=== PATIENT | male | born 1955 | race Caucasian/White ===

== ENCOUNTER 2023-11-08 20:23 | Inpatient (IN) ==
--- NOTE | 2023-11-08 20:48 | Emergency Department Note ---
Impression & Plan Colitis ADMIT ED Provider Note HPI: History obtained from patient. The patient is a 68-year-old gentleman who presents emergency department with a chief complaint of lower abdominal pain as well as intermittent fevers for about the past 10 days that occur after he eats. Patient states that he has gotten to the point where he is having difficulty eating and therefore came to the ED today to be assessed. Patient denies any vomiting, on arrival here to the ED the patient is hypertensive at 138/58 and mildly tachycardic at 113 but otherwise appears to be in no acute distress. Patient is saturating well on room air on my initial assessment. Per bedside RN patient had a near syncopal event in triage, patient tells me that this felt "like I was going to fall asleep because I feel very tired". Patient states he has not been sleeping very well over the past several nights secondary to his symptoms. Patient denies any chest pain or shortness of breath. ROS: - Per HPI Differential Diagnosis: Acute colitis, diverticulitis flare, small bowel obstruction, perforated viscus, ischemic colitis, amongst other potential pathologies. *Outpatient medications and allergy history reviewed. PE: General: Alert HEENT: Normocephalic, trachea midline Eyes: Extraocular eye movement is intact, no scleral erythema Pulmonary: Clear to auscultation bilaterally, no wheezing Cardio: Regular rate and rhythm GI: Abdomen is soft to palpation, there is moderate tenderness in the lower abdomen to palpation without guarding or rigidity : No suprapubic tenderness MSK: No evidence of trauma or malformation of the extremities, no edema Skin: No evidence of rash Neuro: Alert, no focal deficits Psychiatric: Cooperative INDEPENDENT INTERPRETATIONS: panel monitor: (As interpreted by myself): - An order was placed for continuous cardiac monitoring - Patient was noted to be in sinus rhythm with a rate of 95 EKG: (As interpreted by myself): Rate: 93 Rhythm: Normal sinus rhythm Intervals: Within normal limits ST changes: No ST elevation Time: 2104 Chest x-ray: (As interpreted by myself): -No acute disease Interventions provided in ED: -IV morphine, IV Zofran, IV Zosyn, IV fluid bolus Medical Decision Making: IV was established and lab work obtained, patient was placed on color television console monitor. Lab work shows a leukocytosis of 15.33, hemoglobin is normal, platelet count is normal, CMP does not show any critical findings, no evidence of acute kidney injury, troponin is negative x 1. There is no significant transaminitis, bilirubin is slightly elevated at 1.1. Procalcitonin is elevated at 0.52. Given leukocytosis, blood cultures were drawn in the ED. Patient was hypotensive in the 70s systolic when placed on monitor in the ED room, he was given IV fluid bolus of 1.5 L of normal saline and blood pressure did improve to 98/73 on my reassessment prior to admission. Patient states that he feels much better following IV fluid bolus as well as morphine and Zofran. EKG per my interpretation shows normal sinus rhythm without any acute ischemic changes, troponin is negative x 1. Low suspicion for ACS. Given the patient's leukocytosis, abdominal pain, and transient hypotension in addition to presyncopal event in the waiting room, I do feel that he would benefit from admission. Patient is in agreement to this plan. [facility] hospitalist service was consulted for admission, case was discussed with the on-call resident physician, Sabine Gallegos, and the patient was placed for admission in stable condition. Consultants/Discussions held with other healthcare providers: -Hospitalist, Dr. Chung Disposition discussion held by myself with: -Patient Diagnosis: 1. Acute colitis 2. Leukocytosis 3. Presyncopal event 4. Abdominal pain, acute 5. Elevated procalcitonin Disposition: Admission Pineda Turner DO Emergency Medicine Past Med/Surg History Social History Smoking Status: Former smoker Preferred Language: Belarusian Feels Safe at Home: Yes Allergies Allergies Allergy/AdvReac Type Severity Reaction Status Date / Time No Known Allergies Allergy Unverified 11/08/23 22:27 Home Meds Home Medications Medication Instructions Recorded Confirmed budesonide 3 mg 9 mg PO QAM 11/08/23 11/08/23 capsule,delayed,extended release lisinopril 20 mg tablet 20 mg PO QAM 11/08/23 11/08/23 mesalamine 1.2 gram tablet,delayed 2.4 g PO QAM 11/08/23 11/08/23 release Results & Data (ED) Vital Signs Vital Signs - 24 hr 11/08/23 20:27 11/08/23 20:44 11/08/23 20:44 Temperature 36.9 C Temperature Source Temporal Artery Scan Pulse Rate 113 H 102 H 104 H Pulse Rate [Apical] Pulse Rate from SpO2 Sensor Pulse Rhythm Regular Pulse Rhythm [Apical] Pulse Strength Normal Pulse Strength [Apical] Respiratory Rate 18 20 Respiratory Effort / Characteristics Non-Labored Spontaneous Respiratory Depth Normal Respiratory Pattern Regular Blood Pressure 138/58 L Blood Pressure [Right Arm] Blood Pressure Mean 84 Blood Pressure Mean [Right Arm] Blood Pressure Position Sitting Blood Pressure Position [Right Arm] Pulse Oximetry 95 Oxygen Delivery Method Room Air Oxygen Flow Rate Sepsis Recent Fever Within 48 Hours Yes Sepsis New/Unexplained Change in Mental Status N/A Sepsis Action Taken by Nursing No Action Required 11/08/23 20:50 11/08/23 20:52 11/08/23 20:52 Temperature Temperature Source Pulse Rate 100 H 100 H Pulse Rate [Apical] Pulse Rate from SpO2 Sensor 101 H 99 H Pulse Rhythm Pulse Rhythm [Apical] Pulse Strength Pulse Strength [Apical] Respiratory Rate 19 20 Respiratory Effort / Characteristics Respiratory Depth Respiratory Pattern Blood Pressure 71/53 L Blood Pressure [Right Arm] Blood Pressure Mean 65 Blood Pressure Mean [Right Arm] Blood Pressure Position Blood Pressure Position [Right Arm] Pulse Oximetry 94 93 Oxygen Delivery Method Room Air Room Air Oxygen Flow Rate Sepsis Recent Fever Within 48 Hours Sepsis New/Unexplained Change in Mental Status Sepsis Action Taken by Nursing 11/08/23 20:53 11/08/23 20:54 11/08/23 20:54 Temperature Temperature Source Pulse Rate 102 H Pulse Rate [Apical] 103 H Pulse Rate from SpO2 Sensor 102 H Pulse Rhythm Pulse Rhythm [Apical] Regular Pulse Strength Pulse Strength [Apical] Normal Respiratory Rate 17 23 Respiratory Effort / Characteristics Non-Labored Spontaneous Respiratory Depth Normal Respiratory Pattern Regular Blood Pressure 77/53 L Blood Pressure [Right Arm] 71/53 L Blood Pressure Mean 61 Blood Pressure Mean [Right Arm] 59 Blood Pressure Position Blood Pressure Position [Right Arm] Lying Pulse Oximetry 93 93 Oxygen Delivery Method Room Air Oxygen Flow Rate Sepsis Recent Fever Within 48 Hours Sepsis New/Unexplained Change in Mental Status Sepsis Action Taken by Nursing 11/08/23 21:00 11/08/23 21:00 11/08/23 21:15 Temperature Temperature Source Pulse Rate 98 H 102 H Pulse Rate [Apical] Pulse Rate from SpO2 Sensor 98 H Pulse Rhythm Regular Pulse Rhythm [Apical] Pulse Strength Pulse Strength [Apical] Respiratory Rate 15 17 Respiratory Effort / Characteristics Respiratory Depth Respiratory Pattern Blood Pressure 73/59 L Blood Pressure [Right Arm] Blood Pressure Mean 64 Blood Pressure Mean [Right Arm] Blood Pressure Position Blood Pressure Position [Right Arm] Pulse Oximetry 95 94 Oxygen Delivery Method Room Air Room Air Oxygen Flow Rate Sepsis Recent Fever Within 48 Hours Sepsis New/Unexplained Change in Mental Status Sepsis Action Taken by Nursing 11/08/23 21:29 11/08/23 21:30 11/08/23 21:30 Temperature Temperature Source Pulse Rate 94 H 93 H Pulse Rate [Apical] Pulse Rate from SpO2 Sensor 111 H 93 H Pulse Rhythm Pulse Rhythm [Apical] Pulse Strength Pulse Strength [Apical] Respiratory Rate 17 Respiratory Effort / Characteristics Respiratory Depth Respiratory Pattern Blood Pressure 92/61 L Blood Pressure [Right Arm] Blood Pressure Mean 69 Blood Pressure Mean [Right Arm] Blood Pressure Position Blood Pressure Position [Right Arm] Pulse Oximetry 95 94 Oxygen Delivery Method Room Air Room Air Oxygen Flow Rate Sepsis Recent Fever Within 48 Hours Sepsis New/Unexplained Change in Mental Status Sepsis Action Taken by Nursing 11/08/23 21:40 11/08/23 21:45 11/08/23 21:45 Temperature Temperature Source Pulse Rate 92 H 91 H Pulse Rate [Apical] Pulse Rate from SpO2 Sensor 92 H 91 H Pulse Rhythm Pulse Rhythm [Apical] Pulse Strength Pulse Strength [Apical] Respiratory Rate 19 16 Respiratory Effort / Characteristics Respiratory Depth Respiratory Pattern Blood Pressure 91/61 L Blood Pressure [Right Arm] Blood Pressure Mean 73 Blood Pressure Mean [Right Arm] Blood Pressure Position Blood Pressure Position [Right Arm] Pulse Oximetry 98 98 Oxygen Delivery Method Room Air Oxygen Flow Rate Sepsis Recent Fever Within 48 Hours Sepsis New/Unexplained Change in Mental Status Sepsis Action Taken by Nursing 11/08/23 21:50 11/08/23 22:00 11/08/23 22:00 Temperature Temperature Source Pulse Rate 89 90 Pulse Rate [Apical] Pulse Rate from SpO2 Sensor 89 Pulse Rhythm Pulse Rhythm [Apical] Pulse Strength Pulse Strength [Apical] Respiratory Rate 24 14 Respiratory Effort / Characteristics Respiratory Depth Respiratory Pattern Blood Pressure 99/62 L Blood Pressure [Right Arm] Blood Pressure Mean 74 Blood Pressure Mean [Right Arm] Blood Pressure Position Blood Pressure Position [Right Arm] Pulse Oximetry 96 Oxygen Delivery Method Oxygen Flow Rate Sepsis Recent Fever Within 48 Hours Sepsis New/Unexplained Change in Mental Status Sepsis Action Taken by Nursing 11/08/23 22:10 11/08/23 22:19 11/08/23 22:19 Temperature Temperature Source Pulse Rate 87 93 H Pulse Rate [Apical] Pulse Rate from SpO2 Sensor 88 94 H Pulse Rhythm Pulse Rhythm [Apical] Pulse Strength Pulse Strength [Apical] Respiratory Rate 20 19 Respiratory Effort / Characteristics Respiratory Depth Respiratory Pattern Blood Pressure 98/67 L Blood Pressure [Right Arm] Blood Pressure Mean 70 Blood Pressure Mean [Right Arm] Blood Pressure Position Blood Pressure Position [Right Arm] Pulse Oximetry 93 Oxygen Delivery Method Oxygen Flow Rate Sepsis Recent Fever Within 48 Hours Sepsis New/Unexplained Change in Mental Status Sepsis Action Taken by Nursing 11/08/23 22:20 11/08/23 22:30 11/08/23 22:30 Temperature Temperature Source Pulse Rate 92 H 86 Pulse Rate [Apical] Pulse Rate from SpO2 Sensor 92 H 86 Pulse Rhythm Pulse Rhythm [Apical] Pulse Strength Pulse Strength [Apical] Respiratory Rate 20 21 Respiratory Effort / Characteristics Respiratory Depth Respiratory Pattern Blood Pressure 89/70 L Blood Pressure [Right Arm] Blood Pressure Mean 78 Blood Pressure Mean [Right Arm] Blood Pressure Position Blood Pressure Position [Right Arm] Pulse Oximetry 94 Oxygen Delivery Method Oxygen Flow Rate Sepsis Recent Fever Within 48 Hours Sepsis New/Unexplained Change in Mental Status Sepsis Action Taken by Nursing 11/08/23 22:40 11/08/23 22:45 11/08/23 22:45 Temperature Temperature Source Pulse Rate 82 82 Pulse Rate [Apical] Pulse Rate from SpO2 Sensor 82 82 Pulse Rhythm Pulse Rhythm [Apical] Pulse Strength Pulse Strength [Apical] Respiratory Rate 19 20 Respiratory Effort / Characteristics Respiratory Depth Respiratory Pattern Blood Pressure 98/73 L Blood Pressure [Right Arm] Blood Pressure Mean 76 Blood Pressure Mean [Right Arm] Blood Pressure Position Blood Pressure Position [Right Arm] Pulse Oximetry 92 93 Oxygen Delivery Method Nasal Cannula Nasal Cannula Oxygen Flow Rate 2 2 Sepsis Recent Fever Within 48 Hours Sepsis New/Unexplained Change in Mental Status Sepsis Action Taken by Nursing 11/08/23 22:50 11/08/23 22:55 Temperature Temperature Source Pulse Rate 82 Pulse Rate [Apical] 84 Pulse Rate from SpO2 Sensor 82 Pulse Rhythm Pulse Rhythm [Apical] Regular Pulse Strength Pulse Strength [Apical] Normal Respiratory Rate 22 18 Respiratory Effort / Characteristics Non-Labored Spontaneous Respiratory Depth Normal Respiratory Pattern Regular Blood Pressure Blood Pressure [Right Arm] 98/73 L Blood Pressure Mean Blood Pressure Mean [Right Arm] 81 Blood Pressure Position Blood Pressure Position [Right Arm] Lying Pulse Oximetry 95 94 Oxygen Delivery Method Nasal Cannula Nasal Cannula Oxygen Flow Rate 2 2 Sepsis Recent Fever Within 48 Hours Sepsis New/Unexplained Change in Mental Status Sepsis Action Taken by Nursing Laboratory Data 11/08/23 20:45 11/08/23 20:45 Lab Results 11/08/23 11/08/23 11/08/23 Range/Units 20:45 20:59 22:32 WBC 15.33 H (4.8-10.8) K/ul RBC 5.19 (4.70-6.10) M/uL Hgb 14.0 (14.0-18.0) g/dl POC Hgb 15.0 (14.0-18.0) g/dl Hct 42.3 (42.0-52.0) % POC Hct 44 (42-52) % MCV 81.5 (80.0-100.0) fL MCH 27.0 (25.0-34.0) pg MCHC 33.1 (32.0-36.0) g/dL RDW Std Deviation 39.3 (36.4-46.3) fL RDW Coeff of Briana 13.2 (11.5-14.5) % Plt Count 335 (130-400) K/uL MPV 12.1 (9.4-12.4) fL Immature Gran % (Auto) 0.6 % Neut % (Auto) 84.8 % Lymph % (Auto) 7.1 % [place] % (Auto) 6.4 % Eos % (Auto) 0.5 % Baso % (Auto) 0.6 % Neut # (Auto) 13.01 H (1.40-6.50) K/uL Lymph # (Auto) 1.09 L (1.20-3.40) K/uL [place] # (Auto) 0.98 H (0.11-0.59) K/uL Eos # (Auto) 0.07 (0.00-0.50) K/uL Baso # (Auto) 0.09 (0.00-0.20) K/uL Immature Gran # (Auto) 0.09 (0.01-0.20) K/uL Dohle Bodies 2+ Rouleaux 3+ PT 13.0 H (9.0-12.0) Seconds INR 1.2 H (0.9-1.1) POC Sodium 136 (135-144) mmol/L Sodium 137 (136-145) mmol/L POC Potassium 3.2 L (3.3-5.0) mmol/L Potassium 3.4 L (3.5-5.1) mmol/L POC Chloride 100 L (101-112) mmol/L Chloride 101 (98-107) mmol/L Carbon Dioxide 23 (21-32) mmol/L POC Total CO2 25 (24-31) mmol/L Anion Gap 13 H (3-11) POC Anion Gap 15.0 L (16-25) mmol/L POC BUN 10 (7-18) mg/dl BUN 11 (6-23) mg/dl Creatinine 1.08 (0.6-1.4) mg/dl POC Creatinine 1.1 (0.6-1.3) mg/dl Est Cr Clr Drug Dosing 65.1 ml/min Est GFR ( Amer) 81.3 ml/min Est GFR (Non-Af Amer) 70.2 ml/min BUN/Creatinine Ratio 10.2 (10-20) Glucose 145 H (70-99(Fasting)) mg/dl POC Glucose (other) 148 H (70-99) mg/dl Lactate 0.9 (0.4-2.0) mmol/L Calcium 9.4 (8.6-10.3) mg/dl POC Ioniz Calcium Dada 1.15 (1.12-1.32) mmol/l Total Bilirubin 1.1 H (0.2-1.0) mg/dl AST 16 (13-39) U/L ALT 18 (7-52) U/L Alkaline Phosphatase 128 H (34-104) U/L Troponin I High Sens 22.2 H (0-20) pg/ml Total Protein 6.5 (6.0-8.3) gm/dl Albumin 3.3 L (3.4-5.0) gm/dl Globulin 3.2 (2.5-4.0) gm/dl Albumin/Globulin Ratio 1.0 (0.9-2) Lipase 49 (11-82) U/L Procalcitonin 0.52 H (0-0.5) ng/ml Administered Medications Potassium Chloride (K Kenneth / Wtr) 10 meq in 100 mls @ 100 mls/hr IV Q1H TRINO Stop: 11/09/23 01:59 Last Admin: 11/08/23 23:07 Dose: 100 mls/hr Documented By: KLS Discontinued Medications Sodium Chloride (Nss) 500 mls @ 999 mls/hr IV .Q31M STA Stop: 11/08/23 21:16 Last Infusion: 11/08/23 21:50 Dose: Infused Documented By: Admin: 11/08/23 21:10 Dose: 999 mls/hr Documented By: MICHAEL Sodium Chloride (Nss) 1,000 mls @ 999 mls/hr IV .Q1H1M ONE Stop: 11/08/23 22:07 Last Infusion: 11/08/23 22:13 Dose: Infused Documented By: Admin: 11/08/23 21:11 Dose: 999 mls/hr Documented By: MICHAEL Piperacillin Sod/Tazobactam Sod (Zosyn) 4.5 gm in 100 mls @ 200 mls/hr IV NOW ONE Stop: 11/08/23 22:45 Last Infusion: 11/08/23 23:09 Dose: Infused Documented By: Admin: 11/08/23 22:32 Dose: 200 mls/hr Documented By: JOSE Ioversol (Optiray 320 100ml) 90 ml IV ONCE ONE Stop: 11/08/23 21:21 Last Admin: 11/08/23 21:20 Dose: 90 ml Documented By: JOI Morphine Sulfate (Morphine Sulfate 4 Mg/Ml 1 Ml Carp\\Vial) 4 mg IV NOW STA Stop: 11/08/23 20:47 Last Admin: 11/08/23 22:13 Dose: Not Given Documented By: MICHAEL Morphine Sulfate (Morphine Sulfate 2 Mg/Ml Carp) 2 mg IV NOW STA Stop: 11/08/23 22:10 Last Admin: 11/08/23 22:26 Dose: 2 mg Documented By: JOSE Ondansetron HCl (Ondansetron Inj 2 Mg/Ml 2 Ml Vial) 4 mg IV NOW STA Stop: 11/08/23 20:47 Last Admin: 11/08/23 21:10 Dose: 4 mg Documented By: MICHAEL Ondansetron HCl (Ondansetron Inj 2 Mg/Ml 2 Ml Vial) 4 mg IV NOW STA Stop: 11/08/23 22:10 Last Admin: 11/08/23 22:24 Dose: 4 mg Documented By: JOSE Imaging Data Radiologist's Impression: Abdomen/Pelvis CT 11/08/23 20:46 Exam(s): CT ABDOMEN + PELVIS With Contrast IV Amt: OPTIRAY 320 90ML EXAM: CT Abdomen and Pelvis With Intravenous Contrast CLINICAL HISTORY: Reason for exam: lower abd pain. TECHNIQUE: Axial computed tomography images of the abdomen and pelvis with intravenous contrast. Automated exposure control was utilized for the study. A dose lowering technique was utilized adhering to the principles of ALARA. CONTRAST: Patient received OPTIRAY 320 90ML of IV contrast COMPARISON: No relevant prior studies available. FINDINGS: Lung bases: Unremarkable. No mass. No consolidation. ABDOMEN: Liver: Unremarkable. No mass. Gallbladder and bile ducts: Unremarkable. No calcified stones. No ductal dilation. Pancreas: Unremarkable. No mass. No ductal dilation. Spleen: Unremarkable. No splenomegaly. Adrenals: Unremarkable. No mass. Kidneys and ureters: Bilateral renal cysts including a dense renal cyst on the LEFT measured 1.4 cm. This may contain hemorrhagic or proteinaceous components and is similar when compared to September 29, 2023. Nonemergent ultrasound correlation recommended. Stomach and bowel: Circumferential wall thickening of the ascending, transverse, and descending colon, consistent with near pancolitis. Diverticulosis, without acute diverticulitis. No small bowel obstruction. No free intraperitoneal air. PELVIS: Appendix: No findings to suggest acute appendicitis. Bladder: Unremarkable. No mass. Reproductive: Unremarkable as visualized. ABDOMEN and PELVIS: Intraperitoneal space: Unremarkable. No free air. No significant fluid collection. Bones/joints: Degenerative changes of the spine. No acute fracture. No dislocation. Soft tissues: Fat-containing LEFT inguinal hernia. Vasculature: Atherosclerotic changes of the aorta. No abdominal aortic aneurysm. Lymph nodes: Unremarkable. No enlarged lymph nodes. IMPRESSION: 1. Circumferential wall thickening of the ascending, transverse, and descending colon, consistent with near pancolitis. 2. Bilateral renal cysts including a dense renal cyst on the LEFT measured 1.4 cm. This may contain hemorrhagic or proteinaceous components and is similar when compared to September 29, 2023. Nonemergent ultrasound correlation recommended. 3. Diverticulosis, without acute diverticulitis. No small bowel obstruction. No free intraperitoneal air. Electronically signed by: Jonas Don MD 11/08/23 21:48 PM Discharge Plan Visit Data Chief Complaint: GI Assessment Stated Complaint: GI ASSESSMENT ED Provider: Pineda Turner Discharge Problem: Colitis Forms Stand Alone Forms: [facility] [employer] Prescriptions Prescriptions: No Action lisinopril 20 mg tablet 20 mg PO QAM budesonide 3 mg capsule,delayed,extend.release 9 mg PO QAM mesalamine 1.2 gram tablet,delayed release (DR/EC) 2.4 g PO QAM Referrals Referrals: PCP,NO [Physician] -
[2023-11-08] MEDS ORDERED: ONDANSETRON INJ 2 MG/ML 2 ML VIAL ONE (21:04)
[2023-11-08] MEDS: ONDANSETRON INJ 2 MG/ML 2 ML VIAL IV STA ×2 (21:10→22:24)
[2023-11-08] MEDS: SODIUM CHLORIDE 0.9% 500 ML IV STA (21:10)
[2023-11-08 21:11] LABS: iSTAT Creatinine 1.1 mg/dl (0.6-1.3); iSTAT Ionized Calcium 1.15 mmol/l (1.12-1.32); iSTAT Potassium 3.2 mmol/L (3.3-5.0)
[2023-11-08] MEDS: SODIUM CHLORIDE 0.9% 1,000 ML IV ONE (21:11)
[2023-11-08] MEDS: OPTIRAY 320 100ml IV ONE (21:20)
[2023-11-08 21:27] LABS: Albumin Level 3.3 gm/dl (3.4-5.0); BUN Creatinine Ratio 10.2 (10-20); Bilirubin,Total 1.1 mg/dl (0.2-1.0); Calcium 9.4 mg/dl (8.6-10.3); Creatinine Clr Calc Pharmacy 65.1 ml/min; Est GFR (African American) 81.3 ml/min; Est GFR (Non-African American) 70.2 ml/min; Globulin 3.2 gm/dl (2.5-4.0); Potassium 3.4 mmol/L (3.5-5.1); Total Protein 6.5 gm/dl (6.0-8.3)
[2023-11-08 21:33] LABS: Hematocrit (blood only) 42.3 % (42.0-52.0); Mean Corpuscular Hgb Conc 33.1 g/dL (32.0-36.0); Mean Corpuscular Volume 81.5 fL (80.0-100.0); Mean Platelet Volume 12.1 fL (9.4-12.4); Platelet Count 335 K/uL (130-400); RDW Coefficient of Variation 13.2 % (11.5-14.5); RDW Standard Deviation 39.3 fL (36.4-46.3); Red Blood Count 5.19 M/uL (4.70-6.10); White Blood Count 15.33 K/ul (4.8-10.8)
[2023-11-08 21:34] LABS: Troponin I High Sensitivity 22.2 pg/ml (0-20)
[2023-11-08 21:41] LABS: INR 1.2 (0.9-1.1)
--- NOTE | 2023-11-08 21:49 | CT Scan Report ---
Exam(s): CT ABDOMEN + PELVIS With Contrast IV Amt: OPTIRAY 320 90ML EXAM: CT Abdomen and Pelvis With Intravenous Contrast CLINICAL HISTORY: Reason for exam: lower abd pain. TECHNIQUE: Axial computed tomography images of the abdomen and pelvis with intravenous contrast. Automated exposure control was utilized for the study. A dose lowering technique was utilized adhering to the principles of ALARA. CONTRAST: Patient received OPTIRAY 320 90ML of IV contrast COMPARISON: No relevant prior studies available. FINDINGS: Lung bases: Unremarkable. No mass. No consolidation. ABDOMEN: Liver: Unremarkable. No mass. Gallbladder and bile ducts: Unremarkable. No calcified stones. No ductal dilation. Pancreas: Unremarkable. No mass. No ductal dilation. Spleen: Unremarkable. No splenomegaly. Adrenals: Unremarkable. No mass. Kidneys and ureters: Bilateral renal cysts including a dense renal cyst on the LEFT measured 1.4 cm. This may contain hemorrhagic or proteinaceous components and is similar when compared to September 29, 2023. Nonemergent ultrasound correlation recommended. Stomach and bowel: Circumferential wall thickening of the ascending, transverse, and descending colon, consistent with near pancolitis. Diverticulosis, without acute diverticulitis. No small bowel obstruction. No free intraperitoneal air. PELVIS: Appendix: No findings to suggest acute appendicitis. Bladder: Unremarkable. No mass. Reproductive: Unremarkable as visualized. ABDOMEN and PELVIS: Intraperitoneal space: Unremarkable. No free air. No significant fluid collection. Bones/joints: Degenerative changes of the spine. No acute fracture. No dislocation. Soft tissues: Fat-containing LEFT inguinal hernia. Vasculature: Atherosclerotic changes of the aorta. No abdominal aortic aneurysm. Lymph nodes: Unremarkable. No enlarged lymph nodes. IMPRESSION: 1. Circumferential wall thickening of the ascending, transverse, and descending colon, consistent with near pancolitis. 2. Bilateral renal cysts including a dense renal cyst on the LEFT measured 1.4 cm. This may contain hemorrhagic or proteinaceous components and is similar when compared to September 29, 2023. Nonemergent ultrasound correlation recommended. 3. Diverticulosis, without acute diverticulitis. No small bowel obstruction. No free intraperitoneal air. Electronically signed by: Jonas Don MD 11/08/23 21:48 PM
[2023-11-08] MEDS: MoRPHine SULFATE 4 MG/ML 1 ML CARP\\VIAL IV STA (22:13)
[2023-11-08] MEDS: MoRPHine SULFATE 2 MG/ML CARP IV STA (22:26)
[2023-11-08 22:31] LABS: Basophils # (auto) 0.09 K/uL (0.00-0.20); Basophils % (auto) 0.6 %; Dohle Bodies 2+; Eosinophils # (auto) 0.07 K/uL (0.00-0.50); Eosinophils % (auto) 0.5 %; Immature Granulocytes # (auto) 0.09 K/uL (0.01-0.20); Immature Granulocytes % (auto) 0.6 %; Lymphocytes # (auto) 1.09 K/uL (1.20-3.40); Lymphocytes % (auto) 7.1 %; Monocytes # (auto) 0.98 K/uL (0.11-0.59); Monocytes % (auto) 6.4 %; Neutrophils # (auto) 13.01 K/uL (1.40-6.50); Neutrophils % (auto) 84.8 %; Rouleaux 3+
[2023-11-08] MEDS: PIPERACILLIN/TAZOBACTAM 4.5 GM/100 ML BAG IV ONE (22:32)
--- NOTE | 2023-11-08 22:32 | History & Physical Report ---
Date of Service November 08, 2023 Assessment & Plan (1) Colitis: Plan: Unclear etiology of pancolitis - inflammatory vs infectious (viral or bacterial). Patient reportedly with recent workup resulting in ulcerative colitis diagnosis in [place]. Started on budesonide and mesalamine at that time - would recommend confirmation of this diagnosis with medical records. Symptoms improved for about a week and then worsened after starting the medications. Concern for secondary infection vs UC flare. Patient given one time dose of Zosyn while in the ED and fluid resuscitated with 1.5L NS. Would hold off on prednisone for now as symptoms did worsen with outpatient budesonide. Hold off on further abx as well. Hold off on colonoscopy for now d/t risk of perforation in an inflamed colon. NPO with sips and chips for now blood cultures, stool PCR - pending hold off on further treatment until further information obtained GI consult for the AM - appreciate recs continue IVF antiemetics PRN, tylenol 1000 mg Q8H PRN, morphine 1 mg and 2 mg PRN with pain scale - naloxone ordered (2) Near syncope: Plan: Hypotension/Hypoperfusion related. Improved with IVF. Will monitor for signs of sepsis. Continue IVF. Can consider albumin if needed. Keep MAP > 65 Albumin/LR bolus for resuscitation if needed (3) Hypertension: Plan: Holding home lisinopril in setting of recent hypotension. (4) Renal lesion: Plan: Incidental finding on CT. Stable from last imaging. Non-emergent US correlation recommended. (5) Ulcerative colitis: Plan: See above (6) Hypotension: Plan: See above Plan Code status: full DVT ppx: low risk, SCDs FENGI: NPO sips and chips okay, IVF @ 125 mL/hr LR Dispo: monitored unit History of Present Illness Chief Complaint: Abdominal pain Primary Care Provider: Cristian Cortes 68 y/o male with a PMHx of hairy cell leukemia/lymphoma, HTN, and diverticulosis here for evaluation of non-specific abdominal pain and fevers. Patient with left lower abdominal pain for the last 7 days prompting presentation to the ED. Initially BP acceptable. While in triage patient became near-syncopal and was found to have a SBP in the 70s. Significantly improved with 1.5L NS. Leukocytosis to 15. procal 0.53H. Trop 20.7. Pain and nausea improved with morphine and Zofran. Did have respiratory depression with desaturation after morphine administration and is now on 2L NC. Zosyn was given for presumed bacterial colitis. Decision was made for admission and hospitalist team was contacted. Of note was seen in the ED about 2 months ago and was found to have abdominal lymphadenopathy with concern for malignancy and sigmoid colon thickening. Had colonoscopy done in [place] with poly removal. Did have rectal bleeding for a few days after the procedure as the clip came off. Negative for malignancy. Upon my interview patient is feeling significantly better. Pain much better improved and nausea decreased. Does report being thirsty. Per patient he was recently diagnosed with ulcerative colitis and started on budesonide 9 mg and mesalamine 2.4 mg. Initially patient's symptoms improved for about a week then worsened. Patient with diarrhea, nausea, post-prandial fevers, and left sided abdominal pain for the last seven days. Persistent 102 fever today prompting ER evaluation. Pain denies any blood in the urine, stool, or vomit. No CP or SOB. No headaches or vision changes. No other pain. Allergies Allergy/AdvReac Type Severity Reaction Status Date / Time No Known Allergies Allergy Unverified 11/08/23 22:27 Home Medications Medication Instructions Recorded Confirmed Type budesonide 3 mg 9 mg PO QAM 11/08/23 11/08/23 History capsule,delayed,extended release lisinopril 20 mg tablet 20 mg PO QAM 11/08/23 11/08/23 History mesalamine 1.2 gram tablet,delayed 2.4 g PO QAM 11/08/23 11/08/23 History release Past Med/Surg History Medical History (Updated 11/08/23 @ 23:50 by Sabine Gallegos MD) Hairy cell leukemia, in remission Hypertension Social History Smoking Status: Former smoker Second Hand Exposure: No; Do You Dip or Chew Tobacco: No; Hx Alcohol Use: No (patient states "it's been a long while.") Hx Substance Use: No Preferred Language: Gibraltarian Communication Ability: Effective Demolitionist Required: No Beliefs That Will Affect Care: None Current Living Situation: Alone Feels Safe at Home: Yes Safety Concerns: Feels Safe At This Time Assistive Devices: None Review of Systems 2 Review of Systems: See HPI Physical Exam 2 Physical Exam: Gen: well appearing male patient in NAD HEENT: AT MI MMM Resp: CTAB no wheezing no increased work of breathing CV: RRR no m/r/g clinically well perfused Abd: soft, non-distended, mild to moderate tenderness LLQ, otherwise non-tender, +BS, no peritoneal signs MSK: no obvious deformities Skin: no rashes or bruising Neuro: alert and oriented Psych: appropriate mood and affect Results & Data Results & Data Laboratory Results 11/08/23 20:45 11/08/23 20:45 Diagnostic Findings Abdomen/Pelvis CT 11/08/23 20:46 FINDINGS: Lung bases: Unremarkable. No mass. No consolidation. ABDOMEN: Liver: Unremarkable. No mass. Gallbladder and bile ducts: Unremarkable. No calcified stones. No ductal dilation. Pancreas: Unremarkable. No mass. No ductal dilation. Spleen: Unremarkable. No splenomegaly. Adrenals: Unremarkable. No mass. Kidneys and ureters: Bilateral renal cysts including a dense renal cyst on the LEFT measured 1.4 cm. This may contain hemorrhagic or proteinaceous components and is similar when compared to September 29, 2023. Nonemergent ultrasound correlation recommended. Stomach and bowel: Circumferential wall thickening of the ascending, transverse, and descending colon, consistent with near pancolitis. Diverticulosis, without acute diverticulitis. No small bowel obstruction. No free intraperitoneal air. PELVIS: Appendix: No findings to suggest acute appendicitis. Bladder: Unremarkable. No mass. Reproductive: Unremarkable as visualized. ABDOMEN and PELVIS: Intraperitoneal space: Unremarkable. No free air. No significant fluid collection. Bones/joints: Degenerative changes of the spine. No acute fracture. No dislocation. Soft tissues: Fat-containing LEFT inguinal hernia. Vasculature: Atherosclerotic changes of the aorta. No abdominal aortic aneurysm. Lymph nodes: Unremarkable. No enlarged lymph nodes. IMPRESSION: 1. Circumferential wall thickening of the ascending, transverse, and descending colon, consistent with near pancolitis. 2. Bilateral renal cysts including a dense renal cyst on the LEFT measured 1.4 cm. This may contain hemorrhagic or proteinaceous components and is similar when compared to September 29, 2023. Nonemergent ultrasound correlation recommended. 3. Diverticulosis, without acute diverticulitis. No small bowel obstruction. No free intraperitoneal air. Supervising Physician Co-Signing Physician Notes Attending addendum: I have physically seen this patient, have supervised the medical residents activities, and agree with the H&P unless as otherwise noted. Assessment and Plan: Pancolitis- CT scan of abdomen and pelvis has worsened considerably today compared to most recent CT of 09/29/2023, despite being on budesonide and mesalamine Patient reportedly has had a sigmoidoscopy performed in [place], and was diagnosed with ulcerative colitis Try to get records from [place] tomorrow Consult gastroenterology here He did receive a single dose of Zosyn from the ED, will hold on any further dosing until more information available Ice chips and sips, otherwise n.p.o. Stool for PCR Near syncope/hypotension/history of hypertension- Patient is responding to volume with IV fluids, blood pressure had been as low as 71/53 Admit to monitored bed Give albumin 50 g IV if pressure drops again Hold lisinopril Resident Activity Tracking Resident Involvement: Resident Care Provided Care Provided: Adult Hospital Medicine
[2023-11-08] MEDS: POTASSIUM CHLORIDE / WTR 10 MEQ/100 ML PLCT IV SCH (23:07)
[2023-11-09] MEDS ORDERED: MoRPHine SULFATE 2 MG/ML CARP IV PRN (00:02)
[2023-11-09] MEDS ORDERED: NALOXONE HCL 0.4 MG/1 ML VIAL/CARP IV PRN (00:02)
[2023-11-09 01:03] LABS: Appearance Urine Clear (Clear); Bacteria Urine Automated Negative (Negative); Bilirubin Urine Negative (Negative); Blood Urine Negative (Negative); Color Urine Yellow; Epithelial Cell Urine Auto >30 /lpf (0-5); Glucose Urine UA Negative (Negative); Ketones Urine Negative (Negative); Leukocyte Esterase Urine Negative (Negative); Nitrite Urine Negative (Negative); Protein Urine Trace (Negative); RBC Urine Automated 0-4 /hpf (0-4); Specific Gravity Urine > 1.045 (1.000-1.030); Urobilinogen Urine Negative (Negative)
[2023-11-09 04:13] LABS: Hematocrit (blood only) 35.2 % (42.0-52.0); Hemoglobin 11.3 g/dl (14.0-18.0); Mean Corpuscular Hemoglobin 26.5 pg (25.0-34.0); Mean Corpuscular Hgb Conc 32.1 g/dL (32.0-36.0); Mean Corpuscular Volume 82.4 fL (80.0-100.0); Mean Platelet Volume 11.4 fL (9.4-12.4); Platelet Count 221 K/uL (130-400); RDW Coefficient of Variation 13.2 % (11.5-14.5); RDW Standard Deviation 39.9 fL (36.4-46.3); Red Blood Count 4.27 M/uL (4.70-6.10); White Blood Count 9.03 K/ul (4.8-10.8)
[2023-11-09 04:17] LABS: Adenovirus F 40/41 PCR Not Detected (NotDetected); Astrovirus PCR Not Detected (NotDetected); Campylobacter PCR Not Detected (NotDetected); Cryptosporidium PCR Not Detected (NotDetected); Cyclospora cayetanensis PCR Not Detected (NotDetected); Entamoeba histolytica PCR Not Detected (NotDetected); Enteroaggregative E.coli(EAEC) Not Detected (NotDetected); Enteropathogenic E.coli (EPEC) Not Detected (NotDetected); Enterotoxigenic E.coli (ETEC) Not Detected (NotDetected); Giardia lamblia PCR Not Detected (NotDetected); Norovirus GI/GII PCR Not Detected (NotDetected); Plesiomonas shigelloides PCR Not Detected (NotDetected); Rotavirus A PCR Not Detected (NotDetected); Salmonella PCR Not Detected (NotDetected); Sapovirus PCR Not Detected (NotDetected); Shiga-like Toxin E.coli (STEC) Not Detected (NotDetected); Shigella/Enteroinvasive E.coli Not Detected (NotDetected); Vibrio cholerae PCR Not Detected (NotDetected); Vibrio species PCR Not Detected (NotDetected); Yersinia enterocolitica PCR Not Detected (NotDetected)
[2023-11-09 04:31] LABS: Albumin Level 2.6 gm/dl (3.4-5.0); BUN Creatinine Ratio 11.8 (10-20); Bilirubin,Total 0.8 mg/dl (0.2-1.0); Calcium 8.3 mg/dl (8.6-10.3); Creatinine Clr Calc Pharmacy 75.6 ml/min; Est GFR (African American) 97.4 ml/min; Est GFR (Non-African American) 84.1 ml/min; Globulin 2.5 gm/dl (2.5-4.0); Magnesium 1.6 mg/dl (1.7-2.4); Potassium 3.9 mmol/L (3.5-5.1); Total Protein 5.1 gm/dl (6.0-8.3)
[2023-11-09 04:35] LABS: Basophils # (auto) 0.04 K/uL (0.00-0.20); Basophils % (auto) 0.4 %; Dohle Bodies 1+; Eosinophils # (auto) 0.05 K/uL (0.00-0.50); Eosinophils % (auto) 0.6 %; Immature Granulocytes # (auto) 0.05 K/uL (0.01-0.20); Immature Granulocytes % (auto) 0.6 %; Lymphocytes # (auto) 0.76 K/uL (1.20-3.40); Lymphocytes % (auto) 8.4 %; Monocytes # (auto) 0.62 K/uL (0.11-0.59); Monocytes % (auto) 6.9 %; Neutrophils # (auto) 7.51 K/uL (1.40-6.50); Neutrophils % (auto) 83.1 %; Polychromasia 1+; Toxic Granulation 1+
--- NOTE | 2023-11-09 04:59 | Billing Data ---
Date of Service November 09, 2023 Coding Level of Care Code 27391 INT INP/OBS CARE
[2023-11-09] MEDS: MoRPHine SULFATE 2 MG/ML CARP IV PRN (05:00)
--- NOTE | 2023-11-09 07:29 | XRay Report ---
XR chest 1V portable HISTORY: 68 years-old Male near-syncope COMPARISON: CT abdomen and pelvis of same day and also 07/30/2020. TECHNIQUE: AP view of the chest FINDINGS: Cardiac silhouette is enlarged. Chronic moderate right hemidiaphragmatic elevation. Mild chronic appe aring interstitial coarsening without pneumothorax, pleural effusion or airspace consolidation. Bones of the chest appear grossly intact. IMPRESSION: Chronic moderate right hemidiaphragm elevation without acute process of the chest. ACT 112: Negative or not required by law. The above report was generated using voice recognition software. It may contain grammatical, syntax o r spelling errors. Electronically signed by: Lucius Smith M.D. 11/09/2023 7:27 AM
[2023-11-09] MEDS: MAGNESIUM SULFATE / D5W 1 GM/100 ML BAG IV SCH (09:23)
--- NOTE | 2023-11-09 09:58 | Gastrointestinal Consultation ---
Date of Consultation November 09, 2023 Assessment & Plan (1) Ulcerative colitis: (2) Abdominal pain: (3) Fever: (4) Diarrhea: Plan Patient is a 68 y.o. male reportedly diagnosed with UC ~3 weeks ago admitted with fever, abdominal pain, diarrhea and syncope. -Await [facility] records to confirm UC dx and extent of disease activity. -Obtain C Diff testing in light of fever. -Resume oral mesalamine at 1600 mg TID. -If C Diff negative, would start Solu-Medrol 20 mg IV BID. -Start clear liquid diet with advancement to low lactose/residue diet as tolerated. -Continue supportive care per primary team. Thank you for allowing us to participate in the care of this patient. If you have any questions or concerns, please do not hesitate to contact us. Supervising Physician Co-Signing Physician Notes Agree with DYLAN Gallardo as above Abd: Soft, NT, ND, +BS Continue currrent therapy and supportive care Plan as detailed above History of Present Illness Reason for Consultation: Pancolitis Requesting Physician: Dr. Gallegos Attending Physician: Demetrius Moeller DO History of Present Illness Patient is a 68 y.o. male with a history of of UC recently diagnosed at [facility] approximately 3 weeks ago per his report. States he was having symptoms of abdominal pain and bloody diarrhea prior to diagnostic colonoscopy. His [facility] records are being requested and are not readily available to review at the time of evaluation. Despite this, [facility] he was initiated on Uceris and oral mesalamine after his diagnosis. States he was initially doing well on this medication regimen until one week ago. At that time, [facility] he began developing low grade fevers as well as abdominal pain and worsening diarrhea. Yesterday, reports a fever with T-max of 102 with associated syncope and weakness prompting ER evaluation. Labs and imaging reviewed. He was noted to have a white blood cell count of 9.03, hemoglobin 11.3, hematocrit 35.2, platelets 221. Stool Biofire negative. CT a/p with nonspecific wall thickening consistent with pancolitis. At present, he reports a constant ache of the bilateral lower abdominal quadrants rated 4/10 in intensity with associated watery diarrhea ~10 times per day mixed with bright red blood. No nausea this morning. One episode of vomiting yesterday. Patient has been placed on NPO status and started on IV Zosyn. Allergies Allergy/AdvReac Type Severity Reaction Status Date / Time No Known Allergies Allergy Unverified 11/08/23 22:27 Home Medications Medication Instructions Recorded Confirmed Type budesonide 3 mg 9 mg PO QAM 11/08/23 11/08/23 History capsule,delayed,extended release lisinopril 20 mg tablet 20 mg PO QAM 11/08/23 11/08/23 History mesalamine 1.2 gram tablet,delayed 2.4 g PO QAM 11/08/23 11/08/23 History release Patient History Medical History Hairy cell leukemia, in remission Hypertension Social History Smoking Status: Former smoker Second Hand Exposure: No; Do You Dip or Chew Tobacco: No; Hx Alcohol Use: No (patient states "it's been a long while.") Hx Substance Use: No Preferred Language: Kosovan Communication Ability: Effective 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 Beliefs That Will Affect Care: None Current Living Situation: Alone Feels Safe at Home: Yes Assistive Devices: None Review of Systems Review of Systems: All systems reviewed & are unremarkable except as noted in HPI & below Physical Exam Constitutional: WD/WN, vitals as above Eyes: EOM intact bilaterally Respiratory: normal respiratory effort, lungs clear to auscultation Cardiovascular: Rate/Rhythm: regular rhythm and + tachycardic Gastrointestinal (Abdomen): Inspection/Auscultation: + hyperactive bowel sounds; abdomen not distended Percussion/Palpation: + abdomen tender and abdomen soft; no guarding and abdomen not rigid Musculoskeletal: Extremities: extremities normal to inspection Skin: + pallor; no rashes Psychiatric: A+Ox3, euthymic affect Results & Data Vital Signs (Past 12 Hours) Vital Signs Pulse Pulse Resp BP BP Pulse Ox O2 Del Method 11/09/23 09:29 100 H 23 151/85 H 97 Nasal Cannula 11/09/23 07:36 78 20 123/78 98 Nasal Cannula 11/09/23 05:00 79 20 126/76 93 Nasal Cannula 11/09/23 04:00 74 21 116/70 96 Nasal Cannula 11/09/23 03:00 72 20 116/75 97 Nasal Cannula 11/09/23 02:01 72 20 96 Nasal Cannula 11/09/23 02:01 97/77 L 11/09/23 02:00 70 22 95 Nasal Cannula 11/09/23 02:00 71 20 97/77 L 96 Nasal Cannula 11/09/23 01:45 68 22 95 Nasal Cannula 11/09/23 01:45 95/66 L 11/09/23 01:30 72 24 94 Nasal Cannula 11/09/23 01:30 91/62 L 11/09/23 01:15 94/64 L 11/09/23 01:15 73 22 94 Nasal Cannula 11/09/23 01:00 73 23 94 Nasal Cannula 11/09/23 01:00 79/63 L 11/09/23 00:55 Nasal Cannula 11/09/23 00:55 94 H 22 98/64 L 94 Nasal Cannula 11/09/23 00:46 77 22 95 Nasal Cannula 11/09/23 00:46 98/64 L 11/09/23 00:45 77 23 94 Nasal Cannula 11/09/23 00:30 77 19 95 Nasal Cannula 11/09/23 00:30 81/60 L 11/09/23 00:24 77 24 94 Nasal Cannula 11/09/23 00:24 75/59 L 11/09/23 00:24 79 11/09/23 00:16 82 22 96 Nasal Cannula 11/09/23 00:05 77 17 95 Nasal Cannula 11/09/23 00:05 82 20 75/59 L 94 Nasal Cannula 11/09/23 00:00 82 21 94 Nasal Cannula 11/08/23 23:50 84 20 94 Nasal Cannula 11/08/23 23:40 81 20 94 Nasal Cannula 11/08/23 23:30 84 22 93 Nasal Cannula 11/08/23 23:20 86 19 96 Nasal Cannula 11/08/23 23:15 85 19 92 Nasal Cannula 11/08/23 23:15 96/70 L 11/08/23 23:10 84 18 94 Nasal Cannula 11/08/23 23:00 91/61 L 11/08/23 23:00 83 20 91 Nasal Cannula 11/08/23 22:55 84 18 98/73 L 94 Nasal Cannula 11/08/23 22:50 82 22 95 Nasal Cannula 11/08/23 22:45 98/73 L 11/08/23 22:45 82 20 93 Nasal Cannula 11/08/23 22:40 82 19 92 Nasal Cannula 11/08/23 22:30 89/70 L 11/08/23 22:30 86 21 94 11/08/23 22:20 92 H 20 11/08/23 22:19 98/67 L 11/08/23 22:19 93 H 19 11/08/23 22:10 87 20 93 11/08/23 22:00 99/62 L 11/08/23 22:00 90 14 O2 Flow Rate 11/09/23 09:29 2 11/09/23 07:36 2 11/09/23 05:00 2 11/09/23 04:00 2 11/09/23 03:00 2 11/09/23 02:01 2 11/09/23 02:01 11/09/23 02:00 2 11/09/23 02:00 2 11/09/23 01:45 2 11/09/23 01:45 11/09/23 01:30 2 11/09/23 01:30 11/09/23 01:15 11/09/23 01:15 2 11/09/23 01:00 2 11/09/23 01:00 11/09/23 00:55 2 11/09/23 00:55 2 11/09/23 00:46 2 11/09/23 00:46 11/09/23 00:45 2 11/09/23 00:30 2 11/09/23 00:30 11/09/23 00:24 2 11/09/23 00:24 11/09/23 00:24 11/09/23 00:16 2 11/09/23 00:05 2 11/09/23 00:05 2 11/09/23 00:00 2 11/08/23 23:50 2 11/08/23 23:40 2 11/08/23 23:30 2 11/08/23 23:20 2 11/08/23 23:15 2 11/08/23 23:15 11/08/23 23:10 2 11/08/23 23:00 11/08/23 23:00 2 11/08/23 22:55 2 11/08/23 22:50 2 11/08/23 22:45 11/08/23 22:45 2 11/08/23 22:40 2 11/08/23 22:30 11/08/23 22:30 11/08/23 22:20 11/08/23 22:19 11/08/23 22:19 11/08/23 22:10 11/08/23 22:00 11/08/23 22:00 Diagnostic Findings Laboratory Results WBC 9.03 K/ul (4.8-10.8) 11/09/23 03:55 RBC 4.27 M/uL (4.70-6.10) L 11/09/23 03:55 Hgb 11.3 g/dl (14.0-18.0) L 11/09/23 03:55 POC Hgb 15.0 g/dl (14.0-18.0) 11/08/23 20:59 Hct 35.2 % (42.0-52.0) L 11/09/23 03:55 POC Hct 44 % (42-52) 11/08/23 20:59 MCV 82.4 fL (80.0-100.0) 11/09/23 03:55 MCH 26.5 pg (25.0-34.0) 11/09/23 03:55 MCHC 32.1 g/dL (32.0-36.0) 11/09/23 03:55 RDW Std Deviation 39.9 fL (36.4-46.3) 11/09/23 03:55 RDW Coeff of Briana 13.2 % (11.5-14.5) 11/09/23 03:55 Plt Count 221 K/uL (130-400) 11/09/23 03:55 MPV 11.4 fL (9.4-12.4) 11/09/23 03:55 Immature Gran % (Auto) 0.6 % 11/09/23 03:55 Neut % (Auto) 83.1 % 11/09/23 03:55 Lymph % (Auto) 8.4 % 11/09/23 03:55 [place] % (Auto) 6.9 % 11/09/23 03:55 Eos % (Auto) 0.6 % 11/09/23 03:55 Baso % (Auto) 0.4 % 11/09/23 03:55 Neut # (Auto) 7.51 K/uL (1.40-6.50) H 11/09/23 03:55 Lymph # (Auto) 0.76 K/uL (1.20-3.40) L 11/09/23 03:55 [place] # (Auto) 0.62 K/uL (0.11-0.59) H 11/09/23 03:55 Eos # (Auto) 0.05 K/uL (0.00-0.50) 11/09/23 03:55 Baso # (Auto) 0.04 K/uL (0.00-0.20) 11/09/23 03:55 Immature Gran # (Auto) 0.05 K/uL (0.01-0.20) 11/09/23 03:55 Toxic Granulation 1+ 11/09/23 03:55 Dohle Bodies 1+ 11/09/23 03:55 Polychromasia 1+ 11/09/23 03:55 Rouleaux 3+ 11/08/23 20:45 PT 13.0 Seconds (9.0-12.0) H 11/08/23 20:45 INR 1.2 (0.9-1.1) H 11/08/23 20:45 POC Sodium 136 mmol/L (135-144) 11/08/23 20:59 Sodium 138 mmol/L (136-145) 11/09/23 03:55 POC Potassium 3.2 mmol/L (3.3-5.0) L 11/08/23 20:59 Potassium 3.9 mmol/L (3.5-5.1) 11/09/23 03:55 POC Chloride 100 mmol/L (101-112) L 11/08/23 20:59 Chloride 106 mmol/L (98-107) 11/09/23 03:55 Carbon Dioxide 25 mmol/L (21-32) 11/09/23 03:55 POC Total CO2 25 mmol/L (24-31) 11/08/23 20:59 Anion Gap 7 (3-11) 11/09/23 03:55 POC Anion Gap 15.0 mmol/L (16-25) L 11/08/23 20:59 POC BUN 10 mg/dl (7-18) 11/08/23 20:59 BUN 11 mg/dl (6-23) 11/09/23 03:55 Creatinine 0.93 mg/dl (0.6-1.4) 11/09/23 03:55 POC Creatinine 1.1 mg/dl (0.6-1.3) 11/08/23 20:59 Est Cr Clr Drug Dosing 75.6 ml/min 11/09/23 03:55 Est GFR ( Amer) 97.4 ml/min 11/09/23 03:55 Est GFR (Non-Af Amer) 84.1 ml/min 11/09/23 03:55 BUN/Creatinine Ratio 11.8 (10-20) 11/09/23 03:55 Glucose 117 mg/dl (70-99(Fasting)) H 11/09/23 03:55 POC Glucose (other) 148 mg/dl (70-99) H 11/08/23 20:59 Lactate 0.9 mmol/L (0.4-2.0) 11/08/23 22:32 Calcium 8.3 mg/dl (8.6-10.3) L 11/09/23 03:55 POC Ioniz Calcium Dada 1.15 mmol/l (1.12-1.32) 11/08/23 20:59 Magnesium 1.6 mg/dl (1.7-2.4) L 11/09/23 03:55 Total Bilirubin 0.8 mg/dl (0.2-1.0) 11/09/23 03:55 AST 11 U/L (13-39) L 11/09/23 03:55 ALT 14 U/L (7-52) 11/09/23 03:55 Alkaline Phosphatase 86 U/L (34-104) 11/09/23 03:55 Troponin I High Sens 20.7 pg/ml (0-20) H 11/08/23 22:32 Total Protein 5.1 gm/dl (6.0-8.3) L D 11/09/23 03:55 Albumin 2.6 gm/dl (3.4-5.0) L 11/09/23 03:55 Globulin 2.5 gm/dl (2.5-4.0) 11/09/23 03:55 Albumin/Globulin Ratio 1.0 (0.9-2) 11/09/23 03:55 Lipase 49 U/L (11-82) 11/08/23 20:45 Procalcitonin 0.52 ng/ml (0-0.5) H 11/08/23 20:45 Urine Color Yellow 11/09/23 00:30 Urine Appearance Clear (Clear) 11/09/23 00:30 Urine pH 7.0 (4.5-7.5) 11/09/23 00:30 Ur Specific Eliot > 1.045 (1.000-1.030) H 11/09/23 00:30 Urine Protein Trace (Negative) H 11/09/23 00:30 Urine Glucose (UA) Negative (Negative) 11/09/23 00:30 Urine Ketones Negative (Negative) 11/09/23 00:30 Urine Blood Negative (Negative) 11/09/23 00:30 Urine Nitrite Negative (Negative) 11/09/23 00:30 Urine Bilirubin Negative (Negative) 11/09/23 00:30 Urine Urobilinogen Negative (Negative) 11/09/23 00:30 Ur Leukocyte Esterase Negative (Negative) 11/09/23 00:30 Urine WBC (Auto) 5-10 /hpf (0-5) H 11/09/23 00:30 Urine RBC (Auto) 0-4 /hpf (0-4) 11/09/23 00:30 U Hyaline Cast (Auto) 1-5 /lpf (0-5) 11/09/23 00:30 U Epithel Cells (Auto) >30 /lpf (0-5) H 11/09/23 00:30 Urine Bacteria (Auto) Negative (Negative) 11/09/23 00:30 Ur Renal Epithelial Cell Not Reportable 11/09/23 00:30 Stl C. cayetanensis PCR Not Detected (NotDetected) 11/09/23 02:42 Stool Rotavirus A PCR Not Detected (NotDetected) 11/09/23 02:42 Stl Adenov F 40/41 PCR Not Detected (NotDetected) 11/09/23 02:42 Stool Astrovirus (PCR) Not Detected (NotDetected) 11/09/23 02:42 Stool Campylobacter PCR Not Detected (NotDetected) 11/09/23 02:42 Stool Cryptosporidium PCR Not Detected (NotDetected) 11/09/23 02:42 Stl E.coli Shiga Tox PCR Not Detected (NotDetected) 11/09/23 02:42 Stl Enterotoxigenic E PCR Not Detected (NotDetected) 11/09/23 02:42 Stool EPEC (PCR) Not Detected (NotDetected) 11/09/23 02:42 Stool EAEC (PCR) Not Detected (NotDetected) 11/09/23 02:42 Stl E. histolytica PCR Not Detected (NotDetected) 11/09/23 02:42 Stool Giardia Lamblia PCR Not Detected (NotDetected) 11/09/23 02:42 Stool Salmonella PCR Not Detected (NotDetected) 11/09/23 02:42 Stool Sapovirus (PCR) Not Detected (NotDetected) 11/09/23 02:42 Stl P. shigelloides PCR Not Detected (NotDetected) 11/09/23 02:42 Stl Shigella/EIEC PCR Not Detected (NotDetected) 11/09/23 02:42 St Y.enterocolitica PCR Not Detected (NotDetected) 11/09/23 02:42 Stool Vibrio (PCR) Not Detected (NotDetected) 11/09/23 02:42 Stl Vibrio cholerae PCR Not Detected (NotDetected) 11/09/23 02:42 Stl Norovirus GI/GII PCR Not Detected (NotDetected) 11/09/23 02:42 Impressions Abdomen/Pelvis CT 11/08/23 20:46 Exam(s): CT ABDOMEN + PELVIS With Contrast IV Amt: OPTIRAY 320 90ML EXAM: CT Abdomen and Pelvis With Intravenous Contrast CLINICAL HISTORY: Reason for exam: lower abd pain. TECHNIQUE: Axial computed tomography images of the abdomen and pelvis with intravenous contrast. Automated exposure control was utilized for the study. A dose lowering technique was utilized adhering to the principles of ALARA. CONTRAST: Patient received OPTIRAY 320 90ML of IV contrast COMPARISON: No relevant prior studies available. FINDINGS: Lung bases: Unremarkable. No mass. No consolidation. ABDOMEN: Liver: Unremarkable. No mass. Gallbladder and bile ducts: Unremarkable. No calcified stones. No ductal dilation. Pancreas: Unremarkable. No mass. No ductal dilation. Spleen: Unremarkable. No splenomegaly. Adrenals: Unremarkable. No mass. Kidneys and ureters: Bilateral renal cysts including a dense renal cyst on the LEFT measured 1.4 cm. This may contain hemorrhagic or proteinaceous components and is similar when compared to September 29, 2023. Nonemergent ultrasound correlation recommended. Stomach and bowel: Circumferential wall thickening of the ascending, transverse, and descending colon, consistent with near pancolitis. Diverticulosis, without acute diverticulitis. No small bowel obstruction. No free intraperitoneal air. PELVIS: Appendix: No findings to suggest acute appendicitis. Bladder: Unremarkable. No mass. Reproductive: Unremarkable as visualized. ABDOMEN and PELVIS: Intraperitoneal space: Unremarkable. No free air. No significant fluid collection. Bones/joints: Degenerative changes of the spine. No acute fracture. No dislocation. Soft tissues: Fat-containing LEFT inguinal hernia. Vasculature: Atherosclerotic changes of the aorta. No abdominal aortic aneurysm. Lymph nodes: Unremarkable. No enlarged lymph nodes. IMPRESSION: 1. Circumferential wall thickening of the ascending, transverse, and descending colon, consistent with near pancolitis. 2. Bilateral renal cysts including a dense renal cyst on the LEFT measured 1.4 cm. This may contain hemorrhagic or proteinaceous components and is similar when compared to September 29, 2023. Nonemergent ultrasound correlation recommended. 3. Diverticulosis, without acute diverticulitis. No small bowel obstruction. No free intraperitoneal air. Electronically signed by: Jonas Don MD 11/08/23 21:48 PM Chest X-Ray 11/08/23 20:49 XR chest 1V portable HISTORY: 68 years-old Male near-syncope COMPARISON: CT abdomen and pelvis of same day and also 07/30/2020. TECHNIQUE: AP view of the chest FINDINGS: Cardiac silhouette is enlarged. Chronic moderate right hemidiaphragmatic elevation. Mild chronic appearing interstitial coarsening without pneumothorax, pleural effusion or airspace consolidation. Bones of the chest appear grossly intact. IMPRESSION: Chronic moderate right hemidiaphragm elevation without acute process of the chest. ACT 112: Negative or not required by law. The above report was generated using voice recognition software. It may contain grammatical, syntax or spelling errors. Electronically signed by: Lucius Smith M.D. 11/09/2023 7:27 AM PG Care Time/CCT Total # of Minutes Spent Total Time Spent with Patient: Total time spent is greater than 50% in coordination of care (as documented) at patient's floor/unit and/or counseling patient: Coding Level of Care Code 78910 INT INP/OBS CARE 3/75MIN Diagnoses Ulcerative colitis K51.90 Abdominal pain R10.9 Fever R50.9 Diarrhea R19.7
[2023-11-09] MEDS: MESALAMINE 800 MG TABCR PO SCH (13:58)
[2023-11-09] MEDS: ONDANSETRON INJ 2 MG/ML 2 ML VIAL IV PRN (15:36)
[2023-11-09] MEDS: ACETAMINOPHEN 1,000 MG/100 ML VIAL IV PRN (16:16)
--- NOTE | 2023-11-09 17:01 | Hospitalist Progress Note ---
Date of Service November 09, 2023 Assessment & Plan (1) Colitis: (2) Near syncope: (3) Hypertension: (4) Renal lesion: (5) Ulcerative colitis: (6) Hypotension: Plan 68 y/o male with a PMHx of hairy cell leukemia/lymphoma, HTN, reported ulcerative colitis, and diverticulosis here for evaluation of non-specific abdominal pain and fevers. #Pancolitis, UC Flare: CTAP with pancolitis, more severe relative to previous CT 09/29 Stool PCR, Cdff negative, blood cx pending - suspect sx are more likely related to flareup of UC rather than infectious GI consulted, appreciate recs: - Clear liquid diet, advance as tolerated to low residue - Resume PO mesalamine 1600mg TID - Start Solumedrol 20mg IV BID Zofran prn for nausea/vomiting Tylenol, Morphine prn pain control #Near Syncope - Resolved BPs WNL #HTN: Consider restarting home meds if BPs stable overnight #Renal Lesion: Incidental finding on CT. Non-emergent US correlation recommended, defer to outpatient. DVT ppx: low risk, SCDs FENGI: Clear liquid diet, advance as tolerated to low residue diet Dispo: Admission and Anticipated Discharge Date Admission Date: November 08, 2023 Supervising Physician Co-Signing Physician Notes I personally examined the patient and verified all matos points of history and exam, discussed case, and agree with decision making with Dr Dimas Abdominal pain, bloody diarrhea. Worse after eating. Vitals noted, in general he is awake and alert pleasant no distress. HEENT normocephalic atraumatic mucous membranes moist. Breathing unlabored no accessory muscle use good effort. Skin shows no rashes no pallor or icterus. Neuro without focal deficits. Presumed UC flareagree with GIas long as C. difficile is negative, initiate corticosteroids. He would like to follow-up with GI locally, I suggested this is probably a good idea given the difficulties with traveling for managing what is usually a fairly successfully managed condition by GI locally. Otherwise as above. DVT prophylaxisambulation, SCDs given his bloody diarrhea. Subjective Patient evaluated at bedside this morning, notes that he continues to experience LLQ pain but significantly improved with pain medications, denies overnight subjective fever/chills. Patient states that he was recently diagnosed with UC, was following with GI in [place] but would like to establish with local GI. Georges N/V. Review of Systems Review of Systems: as per HPI Physical Exam Physical Exam: General: Resting in bed, groggy, in mild distress Cardiac: Regular rate and rhythm, no murmurs appreciated Respiratory: Lungs clear to auscultation bilaterally, No increased work of breathing Abdominal: Soft, non-distended. LLQ tender to palpation. Bowel sounds present. No rigidity or rebound tenderness. Results & Data Results & Data Vital Signs (Past 12 Hours) Vital Signs Temp Pulse Pulse Resp BP BP Pulse Ox 11/09/23 15:35 37.9 C H 85 16 123/84 99 11/09/23 15:27 100 H 11/09/23 15:25 11/09/23 14:11 37.2 C 11/09/23 14:07 98 H 30 H 116/80 96 11/09/23 14:00 99 H 23 95 11/09/23 12:00 103 H 21 97 11/09/23 11:31 98 H 23 121/76 96 11/09/23 10:00 99 H 25 H 93 11/09/23 09:29 100 H 23 151/85 H 97 11/09/23 09:28 101 H 20 151/85 H 93 11/09/23 08:00 90 23 152/86 H 97 11/09/23 07:36 78 20 123/78 98 11/09/23 07:33 92 H 19 115/71 99 11/09/23 07:31 93 H 21 120/73 96 O2 Del Method O2 Flow Rate 11/09/23 15:35 Nasal Cannula 2 11/09/23 15:27 11/09/23 15:25 Room Air 11/09/23 14:11 11/09/23 14:07 Nasal Cannula 2 11/09/23 14:00 11/09/23 12:00 11/09/23 11:31 Nasal Cannula 1 11/09/23 10:00 11/09/23 09:29 Nasal Cannula 2 11/09/23 09:28 11/09/23 08:00 11/09/23 07:36 Nasal Cannula 2 11/09/23 07:33 11/09/23 07:31 Resident Activity Tracking Resident Involvement: Resident Care Provided Care Provided: Adult [facility] Medicine
--- NOTE | 2023-11-09 18:44 | Billing Data ---
Date of Service November 09, 2023 Coding Level of Care Code 19296 SUB INP/OBS CARE MIN
[2023-11-09] MEDS: methylPREDNISolone 20 MG in SYRINGE 0 ML IV SCH (20:00)
--- NOTE | 2023-11-10 05:35 | Electrocardiogram Report ---
Test Reason : Blood Pressure : / mmHG Vent. Rate : 093 BPM Atrial Rate : 093 BPM P-R Int : 162 ms QRS Dur : 088 ms QT Int : 338 ms P-R-T Axes : 074 012 078 degrees QTc Int : 420 ms Normal sinus rhythm Normal ECG When compared with ECG of 04-DEC-2022 06:26, No significant change was found Confirmed by Adarsh Lenz ([id number]) on 11/10/2023 5:35:01 AM Referred By: REFERRED SELF Confirmed By:Adarsh Lenz
--- NOTE | 2023-11-10 07:25 | Hospitalist Progress Note ---
Date of Service November 10, 2023 Assessment & Plan (1) Colitis: (2) Near syncope: (3) Hypertension: (4) Renal lesion: (5) Ulcerative colitis: (6) Hypotension: Plan 68 y/o male with a PMHx of hairy cell leukemia/lymphoma, HTN, reported ulcerative colitis, and diverticulosis here for evaluation of non-specific abdominal pain and fevers. #Pancolitis, UC Flare: CTAP with pancolitis, more severe relative to previous CT 09/29 Stool PCR, Cdff negative, blood cx pending - suspect sx are more likely related to flareup of UC rather than infectious GI consulted, appreciate recs: - Tolerating liquid diet and good appetite, will advance diet - Continue PO mesalamine 1600mg TID - Continue Solumedrol 20mg IV BID Zofran prn for nausea/vomiting Tylenol, Morphine prn pain control #Near Syncope - Resolved BPs slightly soft but WNL #HTN: Consider restarting home meds if BPs stable overnight #Renal Lesion: Incidental finding on CT. Non-emergent US correlation recommended, defer to outpatient. DVT ppx: low risk, SCDs FENGI: HH, Lactose free, low fiber Dispo: Admission and Anticipated Discharge Date Admission Date: November 08, 2023 Supervising Physician Co-Signing Physician Notes I personally examined the patient and verified all matos points of history and exam, discussed case, and agree with decision making with Dr Dimas abdominal pain doing better, diarrhea is slowing. Appetite improving, tolerated liquids well, thinks he can tolerate real food well as well. Vitals noted, in general he is awake and alert pleasant no distress. HEENT normocephalic atraumatic mucous membranes moist. Breathing unlabored no accessory muscle use good effort. Skin shows no rashes no pallor or icterus. Neuro without focal deficits. Presumed UC flareagree with GIas long as C. difficile is negative, Improving on steroids. Advance diet. Hopefully home tomorrow. Outpatient GI follow-up. DVT prophylaxisambulation, SCDs given his bloody diarrhea. Subjective Patient evaluated at bedside this morning, notes that he continues to experience LLQ pain but significantly improved with pain medications, notes overnight chills/night sweats. Denies N/V, has appetite for food. Some ongoing diarrhea with blood but less than before. Review of Systems Review of Systems: as per HPI Physical Exam Physical Exam: General: Resting in bed, in no distress Cardiac: Regular rate and rhythm, no murmurs appreciated Respiratory: Lungs clear to auscultation bilaterally, No increased work of breathing Abdominal: Soft, non-distended. LLQ tender to palpation. Bowel sounds present. No rigidity or rebound tenderness. Results & Data Results & Data Vital Signs (Past 12 Hours) Vital Signs Temp Pulse Pulse Resp BP Pulse Ox O2 Del Method 11/10/23 07:18 36.6 C 71 16 97/58 L 97 Nasal Cannula 11/10/23 04:00 36.5 C 80 18 114/69 95 Nasal Cannula 11/10/23 00:00 36.4 C L 75 18 109/59 L 94 Room Air 11/09/23 23:00 76 O2 Flow Rate 11/10/23 07:18 2 11/10/23 04:00 2 11/10/23 00:00 11/09/23 23:00 Resident Activity Tracking Resident Involvement: Resident Care Provided Care Provided: Adult Hospital Medicine
[2023-11-10 08:00] LABS: Hemoglobin 11.7 g/dl (14.0-18.0); Mean Corpuscular Hgb Conc 31.6 g/dL (32.0-36.0); Mean Corpuscular Volume 82.2 fL (80.0-100.0); Mean Platelet Volume 11.8 fL (9.4-12.4); Platelet Count 227 K/uL (130-400); RDW Coefficient of Variation 13.2 % (11.5-14.5); RDW Standard Deviation 39.8 fL (36.4-46.3); White Blood Count 8.62 K/ul (4.8-10.8)
[2023-11-10 08:17] LABS: Albumin Level 2.6 gm/dl (3.4-5.0); BUN Creatinine Ratio 17.1 (10-20); Bilirubin,Total 0.6 mg/dl (0.2-1.0); Calcium 8.4 mg/dl (8.6-10.3); Est GFR (African American) 108.7 ml/min; Est GFR (Non-African American) 93.7 ml/min; Globulin 2.6 gm/dl (2.5-4.0); Magnesium 2.2 mg/dl (1.7-2.4); Potassium 3.7 mmol/L (3.5-5.1); Total Protein 5.2 gm/dl (6.0-8.3)
[2023-11-10 08:28] LABS: Basophils # (auto) 0.06 K/uL (0.00-0.20); Basophils % (auto) 0.7 %; Echinocytes 1+; Eosinophils # (auto) 0.01 K/uL (0.00-0.50); Eosinophils % (auto) 0.1 %; Immature Granulocytes # (auto) 0.06 K/uL (0.01-0.20); Immature Granulocytes % (auto) 0.7 %; Lymphocytes # (auto) 0.61 K/uL (1.20-3.40); Lymphocytes % (auto) 7.1 %; Monocytes % (auto) 4.6 %; Neutrophils # (auto) 7.48 K/uL (1.40-6.50); Neutrophils % (auto) 86.8 %; Polychromasia 1+
--- NOTE | 2023-11-10 10:25 | Gastroenterology Progress Note ---
Date of Service November 10, 2023 Assessment & Plan (1) Ulcerative colitis: (2) Abdominal pain: (3) Fever: (4) Diarrhea: Plan Patient is a 68 y.o. male reportedly diagnosed with UC ~3 weeks ago admitted with fever, abdominal pain, diarrhea and syncope. -Await [facility] records to confirm UC dx and extent of disease activity. -Continue oral mesalamine at 1600 mg TID. -Continue Solu-Medrol 20 mg IV BID. Switch to Prednisone 40 mg daily with decrease of 5 mg weekly until complete. -Low lactose/residue diet as tolerated. -Stable for discharge tomorrow if cleared by primary team. Patient to follow up in our office within 2 weeks of discharge. Admission and Anticipated Discharge Date Admission Date: November 08, 2023 Subjective Patient reports feeling generally improved today. No fevers or chills. Reduced abdominal pain. Bowel movement frequency has reduced to 3 this morning without any blood. Appetite improving. H&H stable. C Diff negative. Started on IV steroids yesterday and resumed 5 ASA. Review of Systems Constitutional: as per Subjective / HPI Gastrointestinal: as per Subjective / HPI Physical Exam Constitutional: WD/WN, vitals as above Respiratory: normal respiratory effort, lungs clear to auscultation Cardiovascular: RRR, no murmur, no edema Gastrointestinal (Abdomen): normal bowel sounds, soft, nontender, no hepatosplenomegaly Psychiatric: A+Ox3, euthymic affect Results & Data Results & Data Vital Signs (Past 12 Hours) Vital Signs Temp Pulse Pulse Resp BP Pulse Ox O2 Del Method 11/10/23 07:29 69 11/10/23 07:18 36.6 C 71 16 97/58 L 97 Nasal Cannula 11/10/23 04:00 36.5 C 80 18 114/69 95 Nasal Cannula 11/10/23 00:00 36.4 C L 75 18 109/59 L 94 Room Air 11/09/23 23:00 76 O2 Flow Rate 11/10/23 07:29 11/10/23 07:18 2 11/10/23 04:00 2 11/10/23 00:00 11/09/23 23:00 Laboratory Results Abnormal lab results 11/10/23 Range/Units 07:18 RBC 4.50 L (4.70-6.10) M/uL Hgb 11.7 L (14.0-18.0) g/dl Hct 37.0 L (42.0-52.0) % MCHC 31.6 L (32.0-36.0) g/dL Neut # (Auto) 7.48 H (1.40-6.50) K/uL Lymph # (Auto) 0.61 L (1.20-3.40) K/uL Glucose 107 H (70-99(Fasting)) mg/dl Calcium 8.4 L (8.6-10.3) mg/dl AST 9 L (13-39) U/L Total Protein 5.2 L (6.0-8.3) gm/dl Albumin 2.6 L (3.4-5.0) gm/dl PG Care Time/CCT Total # of Minutes Spent Total Time Spent with Patient: Total time spent is greater than 50% in coordination of care (as documented) at patient's floor/unit and/or counseling patient: Coding Level of Care Code 01319 SUB INP/OBS CARE 3/50MIN Diagnoses Ulcerative colitis K51.90 Abdominal pain R10.9 Fever R50.9 Diarrhea R19.7
--- NOTE | 2023-11-10 16:44 | Billing Data ---
Date of Service November 10, 2023 Coding Level of Care Code 36880 SUB INP/OBS CARE
--- NOTE | 2023-11-11 07:47 | Hospitalist Progress Note ---
Date of Service November 11, 2023 Assessment & Plan (1) Colitis: (2) Near syncope: (3) Hypertension: (4) Renal lesion: (5) Ulcerative colitis: (6) Hypotension: Plan 68 y/o male with a PMHx of hairy cell leukemia/lymphoma, HTN, reported ulcerative colitis, and diverticulosis here for evaluation of non-specific abdominal pain and fevers. #Pancolitis, UC Flare: CTAP with pancolitis, more severe relative to previous CT 09/29 Stool PCR, Cdff negative, blood cx pending - suspect sx are more likely related to flareup of UC rather than infectious GI consulted, appreciate recs: - Tolerating liquid diet and good appetite, will advance diet - Continue PO mesalamine 1600mg TID - Continue Solumedrol 20mg IV BID Zofran prn for nausea/vomiting Tylenol, Morphine prn pain control #Near Syncope - Resolved BPs slightly soft but WNL #HTN: Consider restarting home meds if BPs stable overnight #Renal Lesion: Incidental finding on CT. Non-emergent US correlation recommended, defer to outpatient. DVT ppx: low risk, SCDs FENGI: HH, Lactose free, low fiber Dispo: Admission and Anticipated Discharge Date Admission Date: November 08, 2023 Subjective Patient evaluated at bedside this morning, notes that he continues to experience LLQ pain but significantly improved with pain medications, notes overnight chills/night sweats. Denies N/V, has appetite for food. Some ongoing diarrhea with blood but less than before. Review of Systems Review of Systems: as per HPI Physical Exam Physical Exam: General: Resting in bed, in no distress Cardiac: Regular rate and rhythm, no murmurs appreciated Respiratory: Lungs clear to auscultation bilaterally, No increased work of breathing Abdominal: Soft, non-distended. LLQ tender to palpation. Bowel sounds present. No rigidity or rebound tenderness. Results & Data Results & Data Vital Signs (Past 12 Hours) Vital Signs Temp Pulse Pulse Pulse Resp BP Pulse Ox 11/11/23 07:26 36.4 C L 63 18 118/78 98 11/11/23 03:12 36.4 C L 71 16 110/65 90 11/11/23 01:15 36.5 C 68 16 123/81 98 11/10/23 21:58 84 11/10/23 20:43 36.5 C 81 18 123/78 96 O2 Del Method O2 Flow Rate 11/11/23 07:26 Nasal Cannula 2 11/11/23 03:12 Room Air 11/11/23 01:15 Room Air 11/10/23 21:58 11/10/23 20:43 Room Air
[2023-11-11 07:55] LABS: Hematocrit (blood only) 35.7 % (42.0-52.0); Hemoglobin 11.3 g/dl (14.0-18.0); Mean Corpuscular Hgb Conc 31.7 g/dL (32.0-36.0); Mean Corpuscular Volume 82.1 fL (80.0-100.0); Mean Platelet Volume 11.7 fL (9.4-12.4); Platelet Count 270 K/uL (130-400); RDW Coefficient of Variation 13.1 % (11.5-14.5); RDW Standard Deviation 39.7 fL (36.4-46.3); Red Blood Count 4.35 M/uL (4.70-6.10); White Blood Count 8.65 K/ul (4.8-10.8)
[2023-11-11 08:10] LABS: Albumin Level 2.5 gm/dl (3.4-5.0); BUN Creatinine Ratio 23.5 (10-20); Bilirubin,Total 0.4 mg/dl (0.2-1.0); Calcium 8.3 mg/dl (8.6-10.3); Creatinine Clr Calc Pharmacy 87.3 ml/min; Est GFR (African American) 105.8 ml/min; Est GFR (Non-African American) 91.3 ml/min; Globulin 2.5 gm/dl (2.5-4.0); Magnesium 2.2 mg/dl (1.7-2.4); Potassium 3.8 mmol/L (3.5-5.1)
[2023-11-11 08:26] LABS: Basophils # (auto) 0.04 K/uL (0.00-0.20); Basophils % (auto) 0.5 %; Immature Granulocytes # (auto) 0.05 K/uL (0.01-0.20); Immature Granulocytes % (auto) 0.6 %; Lymphocytes # (auto) 0.71 K/uL (1.20-3.40); Lymphocytes % (auto) 8.2 %; Monocytes # (auto) 0.48 K/uL (0.11-0.59); Monocytes % (auto) 5.5 %; Neutrophils # (auto) 7.37 K/uL (1.40-6.50); Neutrophils % (auto) 85.2 %
--- NOTE | 2023-11-11 11:41 | Discharge Summary ---
Date of Service November 11, 2023 Admission HPI Per Admitting Provider 68 y/o male with a PMHx of hairy cell leukemia/lymphoma, HTN, and diverticulosis here for evaluation of non-specific abdominal pain and fevers. Patient with left lower abdominal pain for the last 7 days prompting pres entation to the ED. Initially BP acceptable. While in triage patient became near-syncopal and was found to have a SBP in the 70s. Significantly improved with 1.5L NS. Leukocytosis to 15. procal 0.53H. Trop 20.7. Pain and nausea improved with morphine and Zofran. Did have respiratory depression with desaturation after morphine administration and is now on 2L NC. Zosyn was given for presumed bacterial colitis. Decision was made for admission and hospitalist team was contacted. Of note was seen in the ED about 2 months ago and was found to have abdominal lymphadenopathy with concern for malignancy and sigmoid colon thickening. Had colonoscopy done in [place] with poly removal. Did have rectal bleeding for a few days after the procedure as the clip came off. Negative for malignancy. Upon my interview patient is feeling significantly better. Pain much better improved and nausea decreased. Does report being thirsty. Per patient he was recently diagnosed with ulcerative colitis and started on budesonide 9 mg and mesalamine 2.4 mg. Initially patient's symptoms improved for about a week then worsened. Patient with diarrhea, nausea, post-prandial fevers, and left sided abdominal pain for the last seven days. Persistent 102 fever today prompting ER evaluation. Pain denies any blood in the urine, stool, or vomit. No CP or SOB. No headaches or vision changes. No other pain. Admission Exam Per Admitting Provider Gen: well appearing male patient in NAD HEENT: AT NC MMM Resp: CTAB no wheezing no increased work of breathing CV: RRR no m/r/g clinically well perfused Abd: soft, non-distended, mild to moderate tenderness LLQ, otherwise non-tender, +BS, no peritoneal signs MSK: no obvious deformities Skin: no rashes or bruising Neuro: alert and oriented Psych: appropriate mood and affect Principal Diagnosis ulcerative colitis Discharge Exam General: Resting in bed, in no distress Cardiac: Regular rate and rhythm, no murmurs appreciated Respiratory: Lungs clear to auscultation bilaterally, No increased work of breathing Abdominal: Soft, non-distended. LLQ tender to palpation. Bowel sounds present. No rigidity or rebound tenderness. Psych: AOx3, mood affect congruence Discharge Data Allergies Allergy/AdvReac Type Severity Reaction Status Date / Time No Known Allergies Allergy Unverified 11/08/23 22:27 Consultations 11/08/23 22:29 ED Decision to Admit Stat 11/09/23 07:00 Consult Gastroenterology Routine Ordered Studies 11/08/23 20:46 CT abd pelvis IV con only Stat Hospital Course (1) Colitis: (2) Near syncope: (3) Hypertension: (4) Renal lesion: (5) Ulcerative colitis: (6) Hypotension: Plan 68 y/o male with a PMHx of hairy cell leukemia/lymphoma, HTN, reported ulcerative colitis, and diverticulosis here for evaluation of non-specific abdominal pain and fevers. #Pancolitis, UC Flare: CTAP with pancolitis, more severe relative to previous CT 09/29 Stool PCR, Cdff negative, blood cx negative GI consulted, treated with IV steroids. Discharge recommendations: - Mesalamine dose increased, continue mesalamine 1600mg TID - Prednisone taper, starting dose: 40mg daily, decrease by 5mg per week, total taper 8 weeks Follow up with outpatient GI #Near Syncope - Resolved Patient hypotensive on admission, fluid resuscitated. #Renal Lesion: Incidental finding on CT. Non-emergent US correlation recommended Total Time Total Time Spent Total Time Spent (In Minutes): <30 Discharge Plan Discharge Items Patient Disposition: Home - Self-Care Reason For Visit: ABDOMINAL PAIN Discharge Diagnosis: Ulcerative Colitis Activity: Resume your previous activity Non-emergency contact: Primary Care Provider and [employer] Call non-emergency contact if: you have any medication questions and your symptoms worsen Follow-up/Referrals: Adan Erickson DO [Physician] - (Ulcerative Colitis follow up) Cristian Cortes D.O. [Primary Care Provider] - (PLEASE CALL YOUR PRIMARY CARE PROVIDER TO SCHEDULE A FOLLOW-UP HOSPITAL DISCHARGE APPOINTMENT WITHIN ) Diet: Low Fiber Addtl Attending Provider Instructions: You were admitted to the hospital due symptoms consistent with a flare-up of ulcerative colitis. You were started on steroids to help treat this - upon discharge, we recommend that you continue treatment with oral steroids ( Prednisone), which will start at 40 mg and taper over 8 weeks. Instructions as follows: Week 1: Please take 40mg (8 tabs) once daily for 7 days, then Week 2: Please take 35mg (7 tabs) once daily for 7 days, then Week 3: Please take 30mg (6 tabs) once daily for 7 days, then Week 4: Please take 25mg (5 tabs) once daily for 7 days, then Week 5: Please take 20mg (4 tabs) once daily for 7 days, then Week 6: Please take 15mg (3 tabs) once daily for 7 days, then Week 7: Please take 10mg (2 tabs) once daily for 7 days, then Week 8: Please take 5mg (1 tab) once daily for 7 days A discharge summary will be sent to your primary care physician to ensure continuity of care. Please bring this discharge summary with you to your next office appointment so that your provider can review it at that time. We have also placed a follow-up/referral request for outpatient GI follow up. Medications: Your medication list has been reviewed and reconciled upon discharge to ensure accuracy and continuity of care. An updated list of all your medications is included with your hospital discharge paperwork. Please review this list closely and make note of any changes to your medications. New Medications: Prednisone: Please take as directed above Mesalamine: Please take 2 tablets (1600mg) three times per day Discontinued Medications: Please STOP taking the following medications: Budesonide Follow up appointments: - Make a follow up appointment with your PCP within the next week. It is very important that you follow up with them shortly after discharge from the hospital. - Keep all of your follow up appointments as already scheduled. If you cannot make an appointment, notify your provider. CONTACT YOUR PRIMARY CARE PROVIDER if you experience any of the following: - Difficulty following your treatment plan - Difficulty taking any of your medications CALL 911 OR GO TO THE EMERGENCY DEPARTMENT if you experience any of the following: - Sudden, severe abdominal pain or nausea/vomiting - Severe chest pain or chest pain that radiates to your jaw or arm - Sudden, severe shortness of breath or difficulty breathing Pending Studies at Discharge: No Stand-Alone Forms: [facility], Smoking Cessation Medications and DC Order Prescriptions: New mesalamine 800 mg Tablet,Delayed Release (Dr/Ec) 1,600 mg PO TID 30 Days Qty: 180 0RF prednisone 5 mg tablet 5 mg PO DIRECTED 56 Days Qty: 252 0RF Rx Instructions: Week 1: Please take 40mg (8 tabs) once daily for 7 days, then Week 2: Please take 35mg (7 tabs) once daily for 7 days, then Week 3: Please take 30mg (6 tabs) once daily for 7 days, then Week 4: Please take 25mg (5 tabs) once daily for 7 days, then Week 5: Please take 20mg (4 tabs) once daily for 7 days, then Week 6: Please take 15mg (3 tabs) once daily for 7 days, then Week 7: Please take 10mg (2 tabs) once daily for 7 days, then Week 8: Please take 5mg (1 tab) once daily for 7 days Continued lisinopril 20 mg tablet 20 mg PO QAM Discontinued budesonide 3 mg capsule,delayed,extend.release 9 mg PO QAM mesalamine 1.2 gram tablet,delayed release (DR/EC) 2.4 g PO QAM Discharge Orders: Discharge Order (Routine); Ordered 11/11/23 Ordered By: Toni Dimas Admission Data Admit Date/Time: 11/08/23 23:15 Attending Provider: Demetrius Moeller Admit Provider: Sabine Gallegos Primary Care Provider: Cristian Cortes Other Providers: Néstor Chung; Adan Erickson Other Interventions: Discharge Summary Assessment (RN) Last Done: 11/11/23 12:55 Supervising Physician Co-Signing Physician Notes I personally examined the patient and verified all matos points of history and exam, discussed case, and agree with decision making with Dr Dimas feeling better. Belly pain improving. Diarrhea improving. Eating well. Feels up to going home. Vitals noted, in general he is awake and alert pleasant no distress. HEENT normocephalic atraumatic mucous membranes moist. Breathing unlabored no accessory muscle use good effort. Skin shows no rashes no pallor or icterus. Neuro without focal deficits. Presumed UC flareagree with GIas long as C. difficile is negative, Improving on steroids. Tolerating regular diet. Home on prolonged steroid taper, outpatient GI follow-up. DVT prophylaxisambulation, SCDs Was utilized during his stay (pharmacologic was a relative contraindication due to his bloody diarrhea)
--- NOTE | 2023-11-11 19:09 | Billing Data ---
Date of Service November 11, 2023 Coding Level of Care Code 62774 IN/OBS DISCH 30 MIN/LESS
== END 2023-11-11 15:10 | disposition home or self-care (01) | DRG 386 ==
LOC: ED 20:23 → EDINP 23:15 → SUATTDRO 23:15 → 2N 11-09 00:03